=== PATIENT | female | born 1980 | race Caucasian/White ===

== ENCOUNTER → 2024-11-13 | Outpatient (CLI) | payer OTHER | LOC: MAMMO 08:29 | DX: Z12.31 Encounter for screening mammogram for malignant neoplasm of breast (principal); N64.89 Other specified disorders of breast ==

== ENCOUNTER → 2024-11-17 | Outpatient (CLI) | payer OTHER | LOC: MAMMO 08:00 | DX: N64.89 Other specified disorders of breast (principal) ==